=== PATIENT | female | born 1980 | race Caucasian/White ===

== ENCOUNTER 2017-09-17 23:48 | Emergency (ER) | payer OTHER ==
[~2017-09-17 23:48] MED LIST: TRAM50TA PO
[2017-09-18 00:10] VITALS: BP 115/54; PULSE 59; RESP 18; TEMP 98.4; O2SAT 99
== END 2017-09-18 01:15 | disposition left against medical advice (07) ==
LOC: NED 23:48
DX: S99.921A Unspecified injury of right foot, initial encounter (principal); X58.XXXA Exposure to other specified factors, initial encounter
CPT/HCPCS: 99281